=== PATIENT | male | born 1980 | race Caucasian/White ===

== ENCOUNTER 2016-08-30 02:50 | Emergency (ER) | payer OTHER ==
[~2016-08-30] VITALS: Ht 160 cm; Wt 52.0 kg
[~2016-08-30 02:50] MED LIST: ALBU8.5H5 INH; CLIN-73 PO; DOXY100T20 PO; IBUP-1542 PO
[2016-08-30 02:53] VITALS: Ht 160 cm; Wt 52.0 kg
[2016-08-30] MEDS ORDERED: KETOROLAC 60 MG INJ IM STA (03:09)
[2016-08-30] MEDS ORDERED: IBUP-1542 PO (03:10)
[2016-08-30] MEDS ORDERED: TRAM50TA2 PO (03:10)
[2016-08-30] MEDS ORDERED: CLIN-73 PO (03:10)
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
== END 2016-08-30 03:28 | disposition home or self-care (01) ==
LOC: FTE 02:50
DX: K08.89 Other specified disorders of teeth and supporting structures (principal); J45.909 Unspecified asthma, uncomplicated; F17.210 Nicotine dependence, cigarettes, uncomplicated
CPT/HCPCS: 96372; J1885